=== PATIENT | male | born 1965 | race Caucasian/White ===

== ENCOUNTER 2016-12-23 20:17 | Emergency (ER) | payer OTHER ==
--- NOTE | 2016-12-23 22:36 | DIAGNOSTIC IMAGING REPORT ---
PROCEDURE: CT ABDOMEN/PELVIS W/O CONTRAST INDICATION: Right flank pain. TECHNIQUE: Noncontrast axial images were obtained of the entire abdomen and pelvis with sagittal and coronal reformations. COMPARISON: CT abdomen/pelvis 09/04/2012. FINDINGS: ABDOMEN: 6.7 x 7.2 mm right renal pelvis calculus with mild stranding around the renal pelvis but no evidence of obstruction at this time. 3 mm nonobstructing right renal upper pole calculus. There are two punctate nonobstructing left renal calculi. Small bilateral renal cysts. Normal ureters. Lung base are clear. Heart size is normal. Normal liver. Small gallbladder mural density suggestive of a polyp. Pancreas, spleen and adrenal glands are normal. Normal abdominal aorta. Nonspecific bowel gas pattern. PELVIS: Status post appendectomy. Mildly enlarged prostate. Normal bladder. Mild degenerative changes of the spine. IMPRESSION: 1. 6.7 x 7.2 mm right renal pelvis calculus with mild stranding of the renal pelvis but no evidence of hydronephrosis. 2. Bilateral nonobstructing renal calculi 3. Gallbladder polyp 4. Results discussed with Dr. Rooney All CT scans at this facility use dose modulation, iterative reconstruction, and/or weight-based dosing when appropriate to reduce radiation dose to as low as reasonably achievable.
--- NOTE | 2016-12-23 23:17 | ED ORDER SUMMARY ---
..... Patient: MARTHA FLORES OrderSheet [facility] VisitID: [id number] [place] [address] 51y, M Registration Date/Time: 12/23/2016 ORDER SHEET Weight: 88.4 kg (stated) Allergies: Codeine, Shellfish-derived Products GENERAL ORDERS: CBC w Diff Urgent (21:16 12/23/2016 Braxton Gutierrez) (Ack 21:23 Darlene) (21:28 KPage-Kuchan R.N.) CMP Urgent (21:16 12/23/2016 Braxton Gutierrez) (Ack 21:23 Darlene) (21:28 KPage-Kuchan R.N.) UA-Culture if indicated Urgent (21:16 12/23/2016 Braxton Gutierrez) (Ack 21:23 Darlene) (21:28 KPage-Kuchan R.N.) Amylase Urgent (21:16 12/23/2016 Braxton Gutierrez) (Ack 21:23 Amyuga) (21:28 KPage-Kuchan R.N.) Lipase Urgent (21:16 12/23/2016 Braxton Gutierrez) (Ack 21:23 Amyuga) (21:28 KPage-Kuchan R.N.) CT Abd/Pel wo Cont Urgent (22:02 12/23/2016 Braxton Gutierrez) (Ack 22:04 Darlene) (22:25 RKcoreyuga) MEDICATION ORDERS: Flomax PO 0.4 mg (Do not crush or chew, NOW) (22:45 12/23/2016 Braxton Gutierrez) (Ack 22:48 JSanders R.N.) (22:54 JSanders R.N.) IV FLUIDS: IV NS : initial bolus none -, then 1000 mL/hr for X1 (NOW) (21:15 12/23/2016 Braxton Gutierrez) (21:28 KPadana-Parish R.N.) Toradol IV 30 mg (NOW) (21:12/23/2016 Braxton Gutierrez) (21:28 KPage-Kuchiragn R.N.) Zofran IV 4 mg (NOW) (21:31 12/23/2016 Braxton Gutierrez) (21:34 KPage-Kuchan R.N.) Demerol IV 50 mg (HIGH ALERT MEDICATION, NOW) (21:35 12/23/2016 Braxton Gutierrez) (Ack 21:47 HSoule) (21:49 KPage-Kuchan R.N.) Famotidine IV 20 mg/50mL (NOW) (23:05 12/23/2016 Braxton Gutierrez) (Ack 23:06 JSanders R.N.) (23:16 JSanders R.N.) Demerol IV 50 mg (HIGH ALERT MEDICATION, NOW) (23:06 12/23/2016 Braxton Gutierrez) (Ack 23:07 JSanders R.N.) (23:15 JSanders R.N.) Zofran IV 4 mg (NOW) (23:39 12/23/2016 JSanders R.N. verbal order read back to Braxton Gutierrez) (Ack 23:39 JSanders R.N.) (23:43 JSanders R.N.) ORDER SHEET NOTES: [Electronically signed by Alison Fonseca (05:53 12/24/2016)] [Electronically signed by Derik Rooney Dr. (07:56 12/24/2016)] [Electronically locked/signed by Alison Fonseca (05:53 12/24/2016)]
--- NOTE | 2016-12-23 23:17 | ED ORDER SUMMARY ---
..... Patient: MARTHA FLORES OrderSheet [facility] VisitID: [id number] [place] [address] 51y, M Registration Date/Time: 12/23/2016 ORDER SHEET Weight: 88.4 kg (stated) Allergies: Codeine, Shellfish-derived Products GENERAL ORDERS: CBC w Diff Urgent (21:16 12/23/2016 Braxton Gutierrez) (Ack 21:23 Darlene) (21:28 KPage-Kuchan R.N.) CMP Urgent (21:16 12/23/2016 Braxton Gutierrez) (Ack 21:23 Darlene) (21:28 KPage-Kuchan R.N.) UA-Culture if indicated Urgent (21:16 12/23/2016 Braxton Gutierrez) (Ack 21:23 Darlene) (21:28 KPage-Kuchan R.N.) Amylase Urgent (21:16 12/23/2016 Braxton Gutierrez) (Ack 21:23 Amyuga) (21:28 KPage-Kuchan R.N.) Lipase Urgent (21:16 12/23/2016 Braxton Gutierrez) (Ack 21:23 Amyuga) (21:28 KPage-Kuchan R.N.) CT Abd/Pel wo Cont Urgent (22:02 12/23/2016 Braxton Gutierrez) (Ack 22:04 Darlene) (22:25 RKcoreyuga) MEDICATION ORDERS: Flomax PO 0.4 mg (Do not crush or chew, NOW) (22:45 12/23/2016 Braxton Gutierrez) (Ack 22:48 JSanders R.N.) (22:54 JSanders R.N.) IV FLUIDS: IV NS : initial bolus none -, then 1000 mL/hr for X1 (NOW) (21:15 12/23/2016 Braxton Gutierrez) (21:28 KPadana-Parish R.N.) Toradol IV 30 mg (NOW) (21:12/23/2016 Braxton Gutierrez) (21:28 KPage-Kuchiragn R.N.) Zofran IV 4 mg (NOW) (21:31 12/23/2016 Braxton Gutierrez) (21:34 KPage-Kuchan R.N.) Demerol IV 50 mg (HIGH ALERT MEDICATION, NOW) (21:35 12/23/2016 Braxton Gutierrez) (Ack 21:47 HSoule) (21:49 KPage-Kuchan R.N.) Famotidine IV 20 mg/50mL (NOW) (23:05 12/23/2016 Braxton Gutierrez) (Ack 23:06 JSanders R.N.) (23:16 JSanders R.N.) Demerol IV 50 mg (HIGH ALERT MEDICATION, NOW) (23:06 12/23/2016 Braxton Gutierrez) (Ack 23:07 JSanders R.N.) (23:15 JSanders R.N.) Zofran IV 4 mg (NOW) (23:39 12/23/2016 JSanders R.N. verbal order read back to Braxton Gutierrez) (Ack 23:39 JSanders R.N.) (23:43 JSanders R.N.) ORDER SHEET NOTES: [Electronically signed by Alison Fonseca (05:53 12/24/2016)] [Electronically signed by Derik Rooney Dr. (07:56 12/24/2016)] [Electronically locked/signed by Alison Fonseca (05:53 12/24/2016)]
--- NOTE | 2016-12-23 23:17 | ED NURSING NOTES ---
Clinical Report - [facility] [address] [place] [address] 12/23/2016 20:17 Patient: MARTHA FLORES TRIAGE Triage time 20:25 Dec 23 2016. Chief Complaint: ABDOMINAL PAIN and VOMITING and (pt reports right mid down to lower quad abd pain "I've been fighting this for a few months" pain increased today at 1400. pt saw pcp and is scheduled for a colonoscopy on 01/01/2017, pain increases after eating). Alert. No acute distress. SEPSIS SCREEN: Sepsis Screen. Negative (no infection suspected/documented). --20:31 Carole Latif R.N. 20:25 12/23/16. BP: 142/98. HR: 75. RR: 17. O2 saturation: 99%. Temp: 98.6 F. Pain level now: 03/01. --20:31 Carole Latif R.N. Weight: 88.4 kg stated. Height/Length: 68 inches Per Patient. BMI: 29.6. --20:28 Carole Latif R.N. Medications None. --20:27 Carole Latif R.N. Medication/allergy information source: the patient. --20:31 Carole Latif R.N. Allergies Codeine. --20:27 Carole Latif R.N. Shellfish-derived Products. --20:28 Carole Latif R.N. History Arrived by private vehicle. Historian: patient and family. Accompanied by family. Onset. (2 months ago). Last oral intake by patient was (1800 today). Treatment EMPLOYEE RELATION MANAGER: None. PAST MEDICAL HX: Immunizations: up-to-date. SOCIAL HX: Never smoker. No alcohol use or drug use. No infectious disease exposure. No known contact with a sick individual. ABUSE ASSESSMENT: No report of abuse. SELF HARM ASSESSMENT: A self harm assessment was performed. The patient answered "no" to the question "Are you here because you tried to hurt yourself?". FALL RISK ASSESSMENT: Fall risk assessment completed. No fall risk identified. NUTRITIONAL RISK ASSESSMENT: The nutritional risk assessment revealed no deficiencies. FUNCTIONAL ASSESSMENT: Functional assessment: no impairments noted. LEARNING NEEDS ASSESSMENT: The learning needs assessment revealed no barriers. SKIN INTEGRITY ASSESSMENT: Skin integrity risk assessment completed. No skin integrity risk identified. --20:31 Carole Latif R.N. PROBLEMS: Renal Colic. Abnormal EKG. Anaphylaxis. Bladder cancer. Hypertension. Laceration. Tetanus Status. Last Tetanus. Abdominal Pain. --20:28 Carole Latif R.N. ADDITIONAL SURGERIES: Appendectomy. Bladder . --20:28 Carole Latif R.N. Interventions ID and allergy band on patient. --20:31 Carole Latif R.N. PHYSICAL ASSESSMENT Ambulatory to room. Patient gowned. GENERAL / NEURO / PSYCH: Alert. Oriented X 4. Appears in pain. RESPIRATORY: Respirations not labored. CVS: Capillary refill less than 2 seconds. GI / : Abdomen soft. Bowel sounds within normal limits. SKIN: Skin is warm and dry. --20:32 Carole Latif R.N. NURSING PROGRESS NOTES 20:28 12/23/2016 Site #1 started via IV in the right antecubital space with an 20g angiocath; one attempt. Blood drawn: rainbow set. Labeled in the presence of the patient and sent to the lab. Saline lock flushed with saline. --20:33 Carole Latif R.N. Pulse oximeter and NIBP monitor placed on patient; monitor alarms on. Patient gowned. Head of bed elevated. Reassurance given. Patient identifiers checked. Call light placed in reach. Side rails up x 1. Bed placed in lowest position. Brakes of bed on. Patient ready for evaluation- chart flagged. --20:33 Carole Latif R.N. 21:23 12/23/2016 Toradol IVP 30 mg given. via site #1. Allergies verified and confirmed 5 rights. IV patency established. IV site checked: no pain, redness, or swelling. IV flushed thoroughly pre- and post-medication administration. IVP given by RN. --21:28 Carole Latif R.N. 21:23 12/23/2016 Started bag #1 1000 mL IV Fluids IV NS (Saline); at 1000 mL/hr via site #1 via dial-a-flow. Allergies verified and confirmed 5 rights. IV patency established. IV site checked: no pain, redness, or swelling. IV flushed thoroughly pre- and post-medication administration. --21:28 Carole Latif R.N. 21:29 12/23/16. ( pt called out with c/o "pain is amping up again" notified with order for demerol). --21:53 Carole Latif R.N. 21:34 12/23/2016 Zofran (Ondansetron HCl) IVP 4 mg given. via site #1. Allergies verified and confirmed 5 rights. IV patency established. IV site checked: no pain, redness, or swelling. IV flushed thoroughly pre- and post-medication administration. IVP given by RN. --21:34 Carole Latif R.N. 21:44 12/23/2016 Demerol (Meperidine HCl) IVP 50 mg given. via site #1. Allergies verified and confirmed 5 rights. IV patency established. IV site checked: no pain, redness, or swelling. IV flushed thoroughly pre- and post-medication administration. IVP given by RN. --21:49 Carole Latif R.N. ( pt c/o nausea - emesis bag given, remains at bedside, pt on monitor O2 sat and bp prior to narcotic given for pain). --21:51 Carole Latif R.N. Patient identifiers checked. Call light placed in reach. Side rails up x 1. Bed placed in lowest position. Brakes of bed on. ( warm blanket provided for comfort). --21:54 Carole Latif R.N. 21:53 12/23/16. BP: 146/94. HR: 63. RR: 15. O2 saturation: 96%. --21:54 Carole Latif R.N. 22:54 12/23/2016 Flomax (Tamsulosin HCl) PO Capsules 0.4 mg given. Allergies verified and confirmed 5 rights. --22:54 Jordana Berman R.N. 22:56 12/23/16. BP: 119/81 (regular adult cuff) taken on the left arm. HR: 58. RR: 16. O2 saturation: 96% on room air. Pain level now: 09/29. --22:57 Jordana Berman R.N. 22:58 12/23/16. ( at bedside, explained flomax to patient and over the counter acid reducers for stomach, informed patient to follow up with GI on stomach issues first). --22:58 Jordana Berman R.N. 23:15 12/23/2016 Demerol (Meperidine HCl) IVP 50 mg given over 1 minute(s) via site #1. Allergies verified and confirmed 5 rights. IV patency established. IV site checked: no pain, redness, or swelling. IV flushed thoroughly pre- and post-medication administration. IVP given by RN. --23:15 Jordana Berman R.N. 23:16 12/23/2016 Started 20 mg of Famotidine IVPB in bag #1 50 mL; at 100 mL/hr over 30 minute(s) via site #1 via IV pump. Allergies verified and confirmed 5 rights. IV patency established. IV site checked: no pain, redness, or swelling. IV flushed thoroughly pre- and post-medication administration. --23:16 Jordana Berman R.N. 23:16 12/23/2016 IV Fluids IV NS Discontinued: bag #1 completed. Total amount infused: 1000 mL. IV patency established. IV site checked: no pain, redness, or swelling. IV flushed thoroughly. --23:16 Jordana Berman R.N. 23:40 12/23/2016 Famotidine IVPB Discontinued: bag #2 completed. Total amount infused: 50 mL. IV patency established. IV site checked: no pain, redness, or swelling. IV flushed thoroughly. --23:43 Jordana Berman R.N. 23:43 12/23/2016 Zofran (Ondansetron HCl) IVP 4 mg given over 1 minute(s) via site #1. Allergies verified and confirmed 5 rights. IV patency established. IV site checked: no pain, redness, or swelling. IV flushed thoroughly pre- and post-medication administration. IVP given by RN. --23:43 Jordana Berman R.N. DISPOSITION / DISCHARGE 23:49 12/23/2016 Site #1 removed upon discharge. Bandaid applied. --23:49 Jordana Berman R.N. 23:50 12/23/16. Condition at departure: improved. No learning barriers present. Discharge instructions provided and reviewed with the patient and spouse. Reviewed medication(s) side effects, precautions, dosing and course information. Prescription(s) given to the patient. Patient and spouse verbalized understanding. Written instructions provided in Irish. The patient was discharged by the physician. He was discharged home and accompanied by spouse. He left the Emergency Department ambulatory and via private vehicle. Spouse driving. --23:50 Jordana Berman R.N. 23:48 12/23/16. BP: 113/81 (regular adult cuff) taken on the left arm. HR: 64. RR: 16. O2 saturation: 97% on room air. Temp: 97.7 F (oral). Pain level now: 0/10. --23:50 Jordana Berman R.N. Locked/Released at 12/24/2016 5:53 by Alison Fonseca,
--- NOTE | 2016-12-23 23:17 | ED CLINICAL REPORT ---
Clinical Report - Physicians/Mid Levels [facility] [address] [place] [place] [address] 12/23/2016 20:17 Patient: MARTHA FLORES Time Seen: 20:55; initial patient contact. Arrived- By private vehicle. Historian- patient. HISTORY OF PRESENT ILLNESS Chief Complaint: ABDOMINAL PAIN. At its maximum, severity described as moderate. When seen in the E.D., severity described as moderate. Modifying factors. Not worsened by anything. Not relieved by anything. It is described as "pain". No radiation. It is described as located in the right upper quadrant. This started several months ago and is still present (worse since this afternoon). The patient has had nausea and loss of appetite. No vomiting or diarrhea. Similar symptoms previously: Several times. Recent medical care: Not recently seen/assessed. REVIEW OF SYSTEMS No constipation, difficulty with urination, pain with urination, fever or chills. All systems otherwise negative, except as recorded above. PAST HISTORY Renal Colic. Abnormal EKG. Anaphylaxis. Bladder cancer. Hypertension. Laceration. Tetanus Status. Last Tetanus. Abdominal Pain. SURGERIES: Appendectomy. Bladder . SOCIAL HISTORY Never smoker. No alcohol use or drug use. ADDITIONAL NOTES The nursing notes have been reviewed. PHYSICAL EXAM Vital Signs: 12/23/2016 20:25 BP: 142/98. HR: 75. RR: 17. O2 saturation: 99%. Temp: 98.6 F. Pain level now: 8/10. Have been reviewed. Hypertensive. Heart rate normal. Respiratory rate normal. Temperature normal. Oxygen saturation normal. Appearance: Alert. Oriented X3. Appears to be in pain. Patient in moderate distress. Eyes: Eyes normal inspection. No scleral icterus. ENT: Dry mucous membranes present. CVS: Normal heart rate and rhythm. Heart sounds normal. Respiratory: No respiratory distress. Breath sounds normal. Abdomen: Soft. Moderate tenderness in the right side of the abdomen with guarding present. No rebound tenderness or Ledesma's, obturator or psoas sign present. Bowel sounds normal. No organomegaly. No mass. Back: Normal inspection. No CVA tenderness. Skin: Skin warm and dry. Normal skin color. Extremities: No lower extremity edema. Neuro: Oriented X 3. LABS, X-RAYS, AND EKG Laboratory Tests: UA-Culture if indicated: (TEODORO: 12/23/2016 21:31) ( MsgRcvd 12/23/2016 21:57) Final results Test Result Flag Units (Reference) URINE COLOR YELLOW URINE APPEARANCE CLEAR URINE GLUCOSE NEGATIVE (NEGATIVE) URINE BILIRUBIN NEGATIVE (NEGATIVE) URINE KETONE NEGATIVE (NEGATIVE) URINE SPECIFIC GRAVITY 1.010 (1.010-1.030) URINE PH 7.0 (5.0-8.0) URINE PROTEIN NEGATIVE (NEGATIVE) URINE UROBILINOGEN 0.2 EU/dL (0.2-1.0) URINE NITRITE NEGATIVE (NEGATIVE) URINE BLOOD 2+ (NEGATIVE) URINE LEUK ESTERASE NEGATIVE (NEGATIVE) URINE RBC 1-3 rbc/hpf (0-1) URINE WBC 0-1 wbc/hpf (0-1) URINE EPITHELIAL CELLS NONE SEEN EPI/hpf (0-5) URINE BACTERIA NONE SEEN (NONE SEEN) URINE COMMENT CULT NOT INDICATED URINE CULTURES ARE SET-UP BASED ON THE FOLLOWING CRITERIA:POSITIVE NITRITEPOSITIVE LEUKOCYTE ESTERASEGREATER THAN 10 WHITE BLOOD CELLSMODERATE (2+) OR GREATER BACTERIA CBC w Diff: (TEODORO: 12/23/2016 20:30) ( MsgRcvd 12/23/2016 21:55) Final results Test Result Flag Units (Reference) WHITE BLOOD COUNT 7.8 K/uL (4.5-11.5) RED BLOOD COUNT 4.91 M/uL (4.50-5.90) HEMOGLOBIN 14.4 gm/dL (13.5-17.5) HEMATOCRIT 42.3 % (41.0-53.0) MEAN CELL VOLUME 86 fL (80-100) MEAN CORPUSCULAR HGB 29 pg (26-34) MEAN CORPUSCULAR HGB CONC 34 g/dL (31-37) RED CELL DISTRIBUTION WIDTH 12.5 % (11.6-14.8) PLATELET COUNT 284 K/uL (150-400) NEUTROPHIL % 56.6 % (50-75) LYMPH % 29.8 % (25-40) MONO % 9.8 % (3-14) EOSINOPHIL % 3.6 % (0-4) BASOPHIL % 0.2 % (0-2) CMP: (TEODORO: 12/23/2016 20:30) ( MsgRcvd 12/23/2016 21:50) Final results Test Result Flag Units (Reference) GLUCOSE 108 mg/dL (70-110) BUN 21 H mg/dL (7-18) CREATININE 1.0 mg/dL (0.6-1.3) Estimated GFR >60 mL/min Estimated GFR- >60 mL/min Note: Persistent reduction over 3 months in eGFR<60 mL/min/1.73 m2 defines CKD. Patients with eGFR values>=60 mL/min/1.73 m2 may also have CKD if evidence ofpersistent proteinuria. Additional information may be foundat www.kidney.org. SODIUM 140 mmol/L (136-145) POTASSIUM 3.6 mmol/L (3.5-5.1) CHLORIDE 103 mmol/L (98-107) CARBON DIOXIDE 28 mmol/L (21-32) CALCIUM 8.4 L mg/dL (8.5-10.1) TOTAL PROTEIN 7.4 g/dL (6.4-8.2) ALBUMIN 3.6 g/dL (3.3-5.0) BILIRUBIN, TOTAL 0.5 mg/dL (0.0-1.0) ALKALINE PHOSPHATASE 48 U/L (46-116) AST (SGOT) 19 U/L (15-37) ALT (SGPT) 20 U/L (12-78) LIPASE 115 U/L (73-393) AMYLASE 23 L U/L (25-115) . PROGRESS AND PROCEDURES Disposition: Discharged home in good and improved condition. Condition: good. CLINICAL IMPRESSION Ureterolithiasis (single stone) in the right ureter with renal colic. INSTRUCTIONS Your Current Medications: CONTINUE TAKING THE FOLLOWING MEDICATIONS: None*. Prescription Medications: Zofran (orally disintegrating tablets) 4 mg: take 1 orally every 6 hours as needed for nausea and vomiting. Dispense ten (10). One refill. Substitution is permissible. Zantac 150 mg: take 1 orally every 12 hours. Dispense sixty (60). No refills. Substitution is permissible. Demerol 50 mg: take 1 - 2 tablets orally every 6 hours as needed for pain. Dispense twenty-five (25). No refills. Substitution is permissible. Flomax 0.4 mg: take 1 orally every 24 hours. Dispense fifteen (15). No refills. Substitution is permissible. Follow-up: Follow up with your doctor in about two days. Call for an appointment. Screening today revealed the patient's blood pressure to be in the pre-hypertensive range. The patient should follow up with a primary care provider for blood pressure management. (Electronically signed by Derik Rooney Dr. 12/24/2016 7:56)
--- NOTE | 2016-12-24 07:56 | ED DISCHARGE INSTRUCTIONS ---
Patient: MARTHA FLORES General Instructions [facility] VisitID: [id number] [place] [address] 51y, M Registration Date/Time: 12/23/2016 Ureterolithiasis (single stone) in the right ureter with renal colic. INSTRUCTIONS Your Current Medications: CONTINUE TAKING THE FOLLOWING MEDICATIONS: None*. Prescription Medications: Zofran (orally disintegrating tablets) 4 mg: take 1 orally every 6 hours as needed for nausea and vomiting. Dispense ten (10). One refill. Substitution is permissible. Zantac 150 mg: take 1 orally every 12 hours. Dispense sixty (60). No refills. Substitution is permissible. Demerol 50 mg: take 1 - 2 tablets orally every 6 hours as needed for pain. Dispense twenty-five (25). No refills. Substitution is permissible. Flomax 0.4 mg: take 1 orally every 24 hours. Dispense fifteen (15). No refills. Substitution is permissible. Follow-up: Follow up with your doctor in about two days. Call for an appointment. Screening today revealed the patient's blood pressure to be in the pre-hypertensive range. The patient should follow up with a primary care provider for blood pressure management. ADDITIONAL INFORMATION Kidney Stone (W/ Colic) The sharp cramping pain and nausea/vomiting that you have is due to a small stone which has formed in the kidney and is now passing down a narrow tube (ureter) on its way to your bladder. Once it reaches your bladder, the pain will stop. The stone may pass in your urine stream in one piece. [The size may be 1/16" to 1/4" (1-6mm)]. Or, the stone may also break up into simon fragments which you may not even notice. Once you have had a kidney stone, you are at risk for developing another one in the future. Home Care: Drink plenty of fluids (at least 8 to 10 glasses of water a day). Most stones will pass on their own, but may take from a few hours to a few days. Sometimes the stone is too large to pass by itself and special methods will have to be used to remove the stone. Each time you urinate, do so in a jar. Pour the urine from the jar through the strainer and into the toilet. Continue doing this until 24 hours after your pain stops. By then, if there was a kidney stone, it should pass from your bladder. Some stones dissolve into sand-like particles and pass right through the strainer. In that case, you wont ever see a stone. Save any stone that you find in the strainer and bring it to your doctor for analysis. It may be possible to prevent certain types of stones from forming. Therefore, it is important to know what kind of stone you have. Try to stay as active as possible since this will help the stone pass. Do not stay in bed unless your pain prevents you from getting up. You may notice a red, pink or brown color to your urine. This is normal while passing a kidney stone. Follow Up with your doctor or return to this facility if the pain lasts more than 48 hours. Get Prompt Medical Attention if any of the following occur: Pain that is not controlled by the medicine given Repeated vomiting or unable to keep down fluids Weakness, dizziness or fainting Fever of 100.4F (38C) or higher, or as directed by your healthcare provider Passage of solid red or brown urine (can't see through it) or urine with lots of blood clots Unable to pass urine for 8 hours and increasing bladder pressure Ondansetron Oral disintegrating tablet What is this medicine? ONDANSETRON (on MARISA se mihir) is used to treat nausea and vomiting caused by chemotherapy. It is also used to prevent or treat nausea and vomiting after surgery. How should I use this medicine? These tablets are made to dissolve in the mouth. Do not try to push the tablet through the foil backing. With dry hands, peel away the foil backing and gently remove the tablet. Place the tablet in the mouth and allow it to dissolve, then swallow. While you may take these tablets with water, it is not necessary to do so. Talk to your web editor regarding the use of this medicine in children. Special care may be needed. What side effects may I notice from receiving this medicine? Side effects that you should report to your doctor or health care management assistant as soon as possible: allergic reactions like skin rash, itching or hives, swelling of the face, lips, or tongue breathing problems dizziness fast or irregular heartbeat feeling faint or lightheaded, falls fever and chills swelling of the hands and feet tightness in the chest Side effects that usually do not require medical attention (report to your doctor or health care management assistant if they continue or are bothersome): constipation or diarrhea headache What may interact with this medicine? Do not take this medicine with any of the following medications: -apomorphine -cisapride -dofetilide -dronedarone -pimozide -thioridazine -ziprasidone This medicine may also interact with the following medications: -carbamazepine -phenytoin -rifampicin -tramadol -other medicines that prolong the QT interval (cause an abnormal heart rhythm) What if I miss a dose? If you miss a dose, take it as soon as you can. If it is almost time for your next dose, take only that dose. Do not take double or extra doses. Where should I keep my medicine? Keep out of the reach of children. Store between 2 and 30 degrees C (36 and 86 degrees F). Throw away any unused medicine after the expiration date. What should I tell my health care provider before I take this medicine? They need to know if you have any of these conditions: heart disease history of irregular heartbeat liver disease low levels of magnesium or potassium in the blood an unusual or allergic reaction to ondansetron, granisetron, other medicines, foods, dyes, or preservatives or trying to get breast-feeding What should I watch for while using this medicine? Check with your doctor or health care management assistant as soon as you can if you have any sign of an allergic reaction. Ranitidine Hydrochloride Oral tablet What is this medicine? RANITIDINE (ra DOUG piedra) is a type of antihistamine that blocks the release of stomach acid. It is used to treat stomach or intestinal ulcers. It can relieve ulcer pain and discomfort, and the heartburn from acid reflux. How should I use this medicine? Take this medicine by mouth with a glass of water. Follow the directions on the prescription label. If you only take this medicine once a day, take it at bedtime. Take your medicine at regular intervals. Do not take your medicine more often than directed. Do not stop taking except on your doctor's advice. Talk to your web editor regarding the use of this medicine in children. Special care may be needed. What side effects may I notice from receiving this medicine? Side effects that you should report to your doctor or health care management assistant as soon as possible: agitation, nervousness, depression, hallucinations allergic reactions like skin rash, itching or hives, swelling of the face, lips, or tongue breast enlargement in both males and females breathing problems redness, blistering, peeling or loosening of the skin, including inside the mouth unusual bleeding or bruising unusually weak or tired vomiting yellowing of the skin or eyes Side effects that usually do not require medical attention (report to your doctor or health care management assistant if they continue or are bothersome): constipation or diarrhea dizziness headache nausea What may interact with this medicine? atazanavir delavirdine gefitinib glipizide ketoconazole midazolam procainamide propantheline triazolam warfarin What if I miss a dose? If you miss a dose, take it as soon as you can. If it is almost time for your next dose, take only that dose. Do not take double or extra doses. Where should I keep my medicine? Keep out of the reach of children. Store at room temperature between 15 and 30 degrees C (59 and 86 degrees F). Protect from light and moisture. Keep container tightly closed. Throw away any unused medicine after the expiration date. What should I tell my health care provider before I take this medicine? They need to know if you have any of these conditions: kidney disease liver disease porphyria an unusual or allergic reaction to ranitidine, other medicines, foods, dyes, or preservatives or trying to get breast-feeding What should I watch for while using this medicine? Tell your doctor or health care management assistant if your condition does not start to get better or gets worse. You may need to take this medicine for several days as prescribed before your symptoms get better. Finish the full course of tablets prescribed, even if you feel better. Do not smoke cigarettes or drink alcohol. These increase irritation in your stomach and can lengthen the time it will take for ulcers to heal. Cigarettes and alcohol can also make acid reflux or heartburn worse. If you get black, tarry stools or vomit up what looks like coffee grounds, call your doctor or health care management assistant at once. You may have a bleeding ulcer. Drug Abuse: Prescribed Narcotics& Sedatives Prolonged or overuse of drugs prescribed for pain or sedation may lead to addictionor dependence. Physical dependence leads to drug withdrawal symptoms if you stop taking the drug. With psychological dependence you feel a strong craving for the drug. You may be unable to stop using the drug even though you want to stop. These problems can occur even when the medication is taken at the prescribed dose. Drug addiction places you, your family, and your job at risk. Arrest, conviction and [place] [facility] sentencing are possible. There is increased danger of accidental injuries to yourself or others while you are under the influence of the drug. from an unintentional overdose of the drug is one of the greatest risks you face. Get Care Admit you have a drug problem to yourself and your family and close friends. Tell your prescribing doctors about this problem so they can help you by adjusting the type and amount of medications that are prescribed in the future. It is best to receive all prescriptions for addictive medications from a single physician who can monitor what is being prescribed. Ask your doctor for a referral for professional help. This could be individual psychotherapy or counseling or a drug treatment program (outpatient or residential). Join a self-help group for drug abuse. Avoid friends who abuse drugs themselves or tempt you to continue abusing drugs. Do not combine pain medicines and sedatives together or with alcohol. Doing so can cause oversedation, coma, and stop your breathing. Follow Up with your doctor or as advised by our staff. Contact one of the resources below for help. National [place] on Alcoholism and Drug Dependencewww.ncadd.org Narcotics Anonymouswww.na.org National Alcohol and Substance Abuse Information Center (for referral to treatment programs) 410.496.3492 www.addictioncareoptions.com Get Prompt Medical Attention if any of the following occur: Excess drowsiness Slow breathing (under 8 breaths per minute) Agitation, anxiety, unable to sleep Unintended weight loss Seizure Chest pain or shortness of breath Fever of 100.4F (38C) or higher, or as directed by your healthcare provider Cough with colored sputum You have been given the following additional information: Kidney Stone W/ Colic Ondansetron Oral disintegrating tablet Ranitidine Hydrochloride Oral tablet Drug Abuse: Prescribed Narcotics And Sedatives (Electronically signed by Derik Rooney Dr. 12/24/2016 7:56)
--- NOTE | 2016-12-24 07:56 | ED DISCHARGE INSTRUCTIONS ---
Patient: MARTHA FLORES General Instructions [facility] VisitID: [id number] [place] [address] 51y, M Registration Date/Time: 12/23/2016 Ureterolithiasis (single stone) in the right ureter with renal colic. INSTRUCTIONS Your Current Medications: CONTINUE TAKING THE FOLLOWING MEDICATIONS: None*. Prescription Medications: Zofran (orally disintegrating tablets) 4 mg: take 1 orally every 6 hours as needed for nausea and vomiting. Dispense ten (10). One refill. Substitution is permissible. Zantac 150 mg: take 1 orally every 12 hours. Dispense sixty (60). No refills. Substitution is permissible. Demerol 50 mg: take 1 - 2 tablets orally every 6 hours as needed for pain. Dispense twenty-five (25). No refills. Substitution is permissible. Flomax 0.4 mg: take 1 orally every 24 hours. Dispense fifteen (15). No refills. Substitution is permissible. Follow-up: Follow up with your doctor in about two days. Call for an appointment. Screening today revealed the patient's blood pressure to be in the pre-hypertensive range. The patient should follow up with a primary care provider for blood pressure management. ADDITIONAL INFORMATION Kidney Stone (W/ Colic) The sharp cramping pain and nausea/vomiting that you have is due to a small stone which has formed in the kidney and is now passing down a narrow tube (ureter) on its way to your bladder. Once it reaches your bladder, the pain will stop. The stone may pass in your urine stream in one piece. [The size may be 1/16" to 1/4" (1-6mm)]. Or, the stone may also break up into simon fragments which you may not even notice. Once you have had a kidney stone, you are at risk for developing another one in the future. Home Care: Drink plenty of fluids (at least 8 to 10 glasses of water a day). Most stones will pass on their own, but may take from a few hours to a few days. Sometimes the stone is too large to pass by itself and special methods will have to be used to remove the stone. Each time you urinate, do so in a jar. Pour the urine from the jar through the strainer and into the toilet. Continue doing this until 24 hours after your pain stops. By then, if there was a kidney stone, it should pass from your bladder. Some stones dissolve into sand-like particles and pass right through the strainer. In that case, you wont ever see a stone. Save any stone that you find in the strainer and bring it to your doctor for analysis. It may be possible to prevent certain types of stones from forming. Therefore, it is important to know what kind of stone you have. Try to stay as active as possible since this will help the stone pass. Do not stay in bed unless your pain prevents you from getting up. You may notice a red, pink or brown color to your urine. This is normal while passing a kidney stone. Follow Up with your doctor or return to this facility if the pain lasts more than 48 hours. Get Prompt Medical Attention if any of the following occur: Pain that is not controlled by the medicine given Repeated vomiting or unable to keep down fluids Weakness, dizziness or fainting Fever of 100.4F (38C) or higher, or as directed by your healthcare provider Passage of solid red or brown urine (can't see through it) or urine with lots of blood clots Unable to pass urine for 8 hours and increasing bladder pressure Ondansetron Oral disintegrating tablet What is this medicine? ONDANSETRON (on MARISA se mihir) is used to treat nausea and vomiting caused by chemotherapy. It is also used to prevent or treat nausea and vomiting after surgery. How should I use this medicine? These tablets are made to dissolve in the mouth. Do not try to push the tablet through the foil backing. With dry hands, peel away the foil backing and gently remove the tablet. Place the tablet in the mouth and allow it to dissolve, then swallow. While you may take these tablets with water, it is not necessary to do so. Talk to your pack operator regarding the use of this medicine in children. Special care may be needed. What side effects may I notice from receiving this medicine? Side effects that you should report to your doctor or health critical care clinical nurse specialist as soon as possible: allergic reactions like skin rash, itching or hives, swelling of the face, lips, or tongue breathing problems dizziness fast or irregular heartbeat feeling faint or lightheaded, falls fever and chills swelling of the hands and feet tightness in the chest Side effects that usually do not require medical attention (report to your doctor or health critical care clinical nurse specialist if they continue or are bothersome): constipation or diarrhea headache What may interact with this medicine? Do not take this medicine with any of the following medications: -apomorphine -cisapride -dofetilide -dronedarone -pimozide -thioridazine -ziprasidone This medicine may also interact with the following medications: -carbamazepine -phenytoin -rifampicin -tramadol -other medicines that prolong the QT interval (cause an abnormal heart rhythm) What if I miss a dose? If you miss a dose, take it as soon as you can. If it is almost time for your next dose, take only that dose. Do not take double or extra doses. Where should I keep my medicine? Keep out of the reach of children. Store between 2 and 30 degrees C (36 and 86 degrees F). Throw away any unused medicine after the expiration date. What should I tell my health care provider before I take this medicine? They need to know if you have any of these conditions: heart disease history of irregular heartbeat liver disease low levels of magnesium or potassium in the blood an unusual or allergic reaction to ondansetron, granisetron, other medicines, foods, dyes, or preservatives or trying to get breast-feeding What should I watch for while using this medicine? Check with your doctor or health critical care clinical nurse specialist as soon as you can if you have any sign of an allergic reaction. Ranitidine Hydrochloride Oral tablet What is this medicine? RANITIDINE (ra DOUG piedra) is a type of antihistamine that blocks the release of stomach acid. It is used to treat stomach or intestinal ulcers. It can relieve ulcer pain and discomfort, and the heartburn from acid reflux. How should I use this medicine? Take this medicine by mouth with a glass of water. Follow the directions on the prescription label. If you only take this medicine once a day, take it at bedtime. Take your medicine at regular intervals. Do not take your medicine more often than directed. Do not stop taking except on your doctor's advice. Talk to your pack operator regarding the use of this medicine in children. Special care may be needed. What side effects may I notice from receiving this medicine? Side effects that you should report to your doctor or health critical care clinical nurse specialist as soon as possible: agitation, nervousness, depression, hallucinations allergic reactions like skin rash, itching or hives, swelling of the face, lips, or tongue breast enlargement in both males and females breathing problems redness, blistering, peeling or loosening of the skin, including inside the mouth unusual bleeding or bruising unusually weak or tired vomiting yellowing of the skin or eyes Side effects that usually do not require medical attention (report to your doctor or health critical care clinical nurse specialist if they continue or are bothersome): constipation or diarrhea dizziness headache nausea What may interact with this medicine? atazanavir delavirdine gefitinib glipizide ketoconazole midazolam procainamide propantheline triazolam warfarin What if I miss a dose? If you miss a dose, take it as soon as you can. If it is almost time for your next dose, take only that dose. Do not take double or extra doses. Where should I keep my medicine? Keep out of the reach of children. Store at room temperature between 15 and 30 degrees C (59 and 86 degrees F). Protect from light and moisture. Keep container tightly closed. Throw away any unused medicine after the expiration date. What should I tell my health care provider before I take this medicine? They need to know if you have any of these conditions: kidney disease liver disease porphyria an unusual or allergic reaction to ranitidine, other medicines, foods, dyes, or preservatives or trying to get breast-feeding What should I watch for while using this medicine? Tell your doctor or health critical care clinical nurse specialist if your condition does not start to get better or gets worse. You may need to take this medicine for several days as prescribed before your symptoms get better. Finish the full course of tablets prescribed, even if you feel better. Do not smoke cigarettes or drink alcohol. These increase irritation in your stomach and can lengthen the time it will take for ulcers to heal. Cigarettes and alcohol can also make acid reflux or heartburn worse. If you get black, tarry stools or vomit up what looks like coffee grounds, call your doctor or health critical care clinical nurse specialist at once. You may have a bleeding ulcer. Drug Abuse: Prescribed Narcotics& Sedatives Prolonged or overuse of drugs prescribed for pain or sedation may lead to addictionor dependence. Physical dependence leads to drug withdrawal symptoms if you stop taking the drug. With psychological dependence you feel a strong craving for the drug. You may be unable to stop using the drug even though you want to stop. These problems can occur even when the medication is taken at the prescribed dose. Drug addiction places you, your family, and your job at risk. Arrest, conviction and care home sentencing are possible. There is increased danger of accidental injuries to yourself or others while you are under the influence of the drug. from an unintentional overdose of the drug is one of the greatest risks you face. Get Care Admit you have a drug problem to yourself and your family and close friends. Tell your prescribing doctors about this problem so they can help you by adjusting the type and amount of medications that are prescribed in the future. It is best to receive all prescriptions for addictive medications from a single physician who can monitor what is being prescribed. Ask your doctor for a referral for professional help. This could be individual psychotherapy or counseling or a drug treatment program (outpatient or residential). Join a self-help group for drug abuse. Avoid friends who abuse drugs themselves or tempt you to continue abusing drugs. Do not combine pain medicines and sedatives together or with alcohol. Doing so can cause oversedation, coma, and stop your breathing. Follow Up with your doctor or as advised by our staff. Contact one of the resources below for help. National [place] on Alcoholism and Drug Dependencewww.ncadd.org Narcotics Anonymouswww.na.org National Alcohol and Substance Abuse Information Center (for referral to treatment programs) 176.883.9822 www.addictioncareoptions.com Get Prompt Medical Attention if any of the following occur: Excess drowsiness Slow breathing (under 8 breaths per minute) Agitation, anxiety, unable to sleep Unintended weight loss Seizure Chest pain or shortness of breath Fever of 100.4F (38C) or higher, or as directed by your healthcare provider Cough with colored sputum You have been given the following additional information: Kidney Stone W/ Colic Ondansetron Oral disintegrating tablet Ranitidine Hydrochloride Oral tablet Drug Abuse: Prescribed Narcotics And Sedatives (Electronically signed by Derik Rooney Dr. 12/24/2016 7:56)
--- NOTE | 2016-12-24 07:57 | ED MAR SUMMARY ---
..... Medication Administration Record [facility] [address] [place] [address] Patient: MARTHA FLORES Visit ID: [id number] 51y, M Weight: 88.4 kg Height/Length: 68 in BMI: 29.6 ALLERGIES: Shellfish-derived Products, Codeine Start 21:23 12/23/2016 Carole Latif R.N., Stop 23:16 12/23/2016 Jordana Berman R.N. Medication Administered: IV NS (SALINE), Dose: IV Fluids, Rate: 1000 mL/hr, Dispensed: 1000 mL bag, Site: #1 right AC. Medication Ordered: IV NS : initial bolus none -, then 1000 mL/hr for X1 (NOW). Given 21:23 12/23/2016 Carole Latif R.N. Medication Administered: TORADOL [IVP], Dose: 30 mg IVP, Site: #1 right AC. Medication Ordered: Toradol IV 30 mg (NOW). Given 21:34 12/23/2016 Carole Latif R.N. Medication Administered: ZOFRAN [IVP] (ONDANSETRON HCL), Dose: 4 mg IVP, Site: #1 right AC. Medication Ordered: Zofran IV 4 mg (NOW). Given 21:44 12/23/2016 Carole Latif R.N. Medication Administered: DEMEROL [IVP] (MEPERIDINE HCL), Dose: 50 mg IVP, Site: #1 right AC. Medication Ordered: Demerol IV 50 mg (HIGH ALERT MEDICATION, NOW). Given 22:54 12/23/2016 Jordana Berman R.N. Medication Administered: FLOMAX [PO] (TAMSULOSIN HCL), Dose: 0.4 mg Capsules PO. Medication Ordered: Flomax PO 0.4 mg (Do not crush or chew, NOW). Given 23:15 12/23/2016 Jordana Berman R.N. Medication Administered: DEMEROL [IVP] (MEPERIDINE HCL), Dose: 50 mg IVP over 1 minute(s), Site: #1 right AC. Medication Ordered: Demerol IV 50 mg (HIGH ALERT MEDICATION, NOW). Start 23:16 12/23/2016 Jordana Berman R.N., Stop 23:40 12/23/2016 Jordana Berman R.N. Medication Administered: FAMOTIDINE [IVPB], Dose: 20 mg IVPB over 30 minute(s), Rate: 100 mL/hr, Dispensed: 50 mL bag, Site: #1 right AC. Medication Ordered: Famotidine IV 20 mg/50mL (NOW). Given 23:43 12/23/2016 Jordana Berman R.N. Medication Administered: ZOFRAN [IVP] (ONDANSETRON HCL), Dose: 4 mg IVP over 1 minute(s), Site: #1 right AC. Medication Ordered: Zofran IV 4 mg (NOW).
--- NOTE | 2016-12-24 07:57 | ED MED RECONCILIATION SUMMARY ---
Patient: MARTHA FLORES Medication Reconciliation Report [facility] VisitID: [id number] [place] [address] 51y, M Registration Date/Time: 12/23/2016 Weight: 88.4 kg Height/Length: 68 in. BMI: 29.6 ALLERGIES: Codeine, Shellfish-derived Products The patient's Home Medications are listed below: NONE. The source(s) of the original Home Medication information: patient The following Medications were given to the patient in the Emergency Department: Toradol [IVP] IVP 30 mg, administered: 12/23/2016 9:23:00 PM IV NS IV Fluids bolus 0, then 1000 mL/hr, administered: 12/23/2016 9:23:00 PM Zofran [IVP] IVP 4 mg, administered: 12/23/2016 9:34:00 PM Demerol [IVP] IVP 50 mg, administered: 12/23/2016 9:44:00 PM Flomax [PO] PO 0.4 mg, administered: 12/23/2016 10:54:00 PM Demerol [IVP] IVP 50 mg, administered: 12/23/2016 11:15:00 PM Famotidine [IVPB] IVPB bolus 0, then 20 mg 100 mL/hr, administered: 12/23/2016 11:16:00 PM Zofran [IVP] IVP 4 mg, administered: 12/23/2016 11:43:00 PM The following Medications were prescribed to the patient: Zofran (orally disintegrating tablets) 4 mg: take 1 orally every 6 hours as needed for nausea and vomiting. Dispense ten (10). One refill. Substitution is permissible. -- Derik Rooney Dr. Zantac 150 mg: take 1 orally every 12 hours. Dispense sixty (60). No refills. Substitution is permissible. -- Derik Rooney Dr. Demerol 50 mg: take 1 - 2 tablets orally every 6 hours as needed for pain. Dispense twenty-five (25). No refills. Substitution is permissible. -- Derik Rooney Dr. Flomax 0.4 mg: take 1 orally every 24 hours. Dispense fifteen (15). No refills. Substitution is permissible. -- Derik Rooney Dr.
--- NOTE | 2016-12-24 07:57 | ED MED RECONCILIATION SUMMARY ---
Patient: MARTHA FLORES Medication Reconciliation Report [facility] VisitID: [id number] [place] [address] 51y, M Registration Date/Time: 12/23/2016 Weight: 88.4 kg Height/Length: 68 in. BMI: 29.6 ALLERGIES: Codeine, Shellfish-derived Products The patient's Home Medications are listed below: NONE. The source(s) of the original Home Medication information: patient The following Medications were given to the patient in the Emergency Department: Toradol [IVP] IVP 30 mg, administered: 12/23/2016 9:23:00 PM IV NS IV Fluids bolus 0, then 1000 mL/hr, administered: 12/23/2016 9:23:00 PM Zofran [IVP] IVP 4 mg, administered: 12/23/2016 9:34:00 PM Demerol [IVP] IVP 50 mg, administered: 12/23/2016 9:44:00 PM Flomax [PO] PO 0.4 mg, administered: 12/23/2016 10:54:00 PM Demerol [IVP] IVP 50 mg, administered: 12/23/2016 11:15:00 PM Famotidine [IVPB] IVPB bolus 0, then 20 mg 100 mL/hr, administered: 12/23/2016 11:16:00 PM Zofran [IVP] IVP 4 mg, administered: 12/23/2016 11:43:00 PM The following Medications were prescribed to the patient: Zofran (orally disintegrating tablets) 4 mg: take 1 orally every 6 hours as needed for nausea and vomiting. Dispense ten (10). One refill. Substitution is permissible. -- Derik Rooney Dr. Zantac 150 mg: take 1 orally every 12 hours. Dispense sixty (60). No refills. Substitution is permissible. -- Derik Rooney Dr. Demerol 50 mg: take 1 - 2 tablets orally every 6 hours as needed for pain. Dispense twenty-five (25). No refills. Substitution is permissible. -- Derik Rooney Dr. Flomax 0.4 mg: take 1 orally every 24 hours. Dispense fifteen (15). No refills. Substitution is permissible. -- Derik Rooney Dr.
--- NOTE | 2016-12-24 07:57 | ED MAR SUMMARY ---
..... Medication Administration Record [facility] [address] [place] [address] Patient: MARTHA FLORES Visit ID: [id number] 51y, M Weight: 88.4 kg Height/Length: 68 in BMI: 29.6 ALLERGIES: Shellfish-derived Products, Codeine Start 21:23 12/23/2016 Carole Latif R.N., Stop 23:16 12/23/2016 Jordana Berman R.N. Medication Administered: IV NS (SALINE), Dose: IV Fluids, Rate: 1000 mL/hr, Dispensed: 1000 mL bag, Site: #1 right AC. Medication Ordered: IV NS : initial bolus none -, then 1000 mL/hr for X1 (NOW). Given 21:23 12/23/2016 Carole Latif R.N. Medication Administered: TORADOL [IVP], Dose: 30 mg IVP, Site: #1 right AC. Medication Ordered: Toradol IV 30 mg (NOW). Given 21:34 12/23/2016 Carole Latif R.N. Medication Administered: ZOFRAN [IVP] (ONDANSETRON HCL), Dose: 4 mg IVP, Site: #1 right AC. Medication Ordered: Zofran IV 4 mg (NOW). Given 21:44 12/23/2016 Carole Latif R.N. Medication Administered: DEMEROL [IVP] (MEPERIDINE HCL), Dose: 50 mg IVP, Site: #1 right AC. Medication Ordered: Demerol IV 50 mg (HIGH ALERT MEDICATION, NOW). Given 22:54 12/23/2016 Jordana Berman R.N. Medication Administered: FLOMAX [PO] (TAMSULOSIN HCL), Dose: 0.4 mg Capsules PO. Medication Ordered: Flomax PO 0.4 mg (Do not crush or chew, NOW). Given 23:15 12/23/2016 Jordana Berman R.N. Medication Administered: DEMEROL [IVP] (MEPERIDINE HCL), Dose: 50 mg IVP over 1 minute(s), Site: #1 right AC. Medication Ordered: Demerol IV 50 mg (HIGH ALERT MEDICATION, NOW). Start 23:16 12/23/2016 Jordana Berman R.N., Stop 23:40 12/23/2016 Jordana Berman R.N. Medication Administered: FAMOTIDINE [IVPB], Dose: 20 mg IVPB over 30 minute(s), Rate: 100 mL/hr, Dispensed: 50 mL bag, Site: #1 right AC. Medication Ordered: Famotidine IV 20 mg/50mL (NOW). Given 23:43 12/23/2016 Jordana Berman R.N. Medication Administered: ZOFRAN [IVP] (ONDANSETRON HCL), Dose: 4 mg IVP over 1 minute(s), Site: #1 right AC. Medication Ordered: Zofran IV 4 mg (NOW).
== END 2016-12-23 23:53 | disposition home or self-care (01) ==
LOC: ED SRH 20:17
DX: N20.1 Calculus of ureter (principal); N23 Unspecified renal colic; I10 Essential (primary) hypertension
CPT/HCPCS: 90004; 90100; 92235; 92530; 95059